=== PATIENT | female | born 1990 | race Caucasian/White ===

== ENCOUNTER 2019-01-24 18:53 | Outpatient (CLI) | payer OTHER | END 2019-01-24 20:57 | disposition home or self-care (01) | LOC: OBT 18:53 → L-D 18:54 → OBT 20:57 | DX: O36.8130 Decreased fetal movements, third trimester, not applicable or unspecified (principal); Z3A.38 38 weeks gestation of pregnancy | CPT/HCPCS: 36415; 76815; 76818 ==

== ENCOUNTER 2019-02-02 11:39 | Inpatient (IN) | payer OTHER ==
[2019-02-02] MEDS ORDERED: BUTORPHANOL 2 MG INJ IV (15:00)
[2019-02-02] MEDS ORDERED: OXYTOCIN 30 UNITS/LR 500 ML IV ×2 (15:00)
[2019-02-02] MEDS ORDERED: METHYLERGONOVINE 0.2 MG INJ IM (15:00)
[2019-02-02] MEDS ORDERED: LIDOCAINE 1% (MPF) 30 ML INJ INJ (15:00)
[2019-02-02] MEDS ORDERED: IBUPROFEN 600 MG TAB PO (15:00)
[2019-02-02] MEDS ORDERED: MISOPROSTOL 200 MCG TAB PR (15:00)
[2019-02-02 15:18] LABS: ADD MAN DIFF? NO
[2019-02-02 15:23] LABS: WHITE BLOOD COUNT 9.3 10^3/ul (4.8-10.8)
[2019-02-02 15:23] LABS: BASOPHILS % 0.3 % (0.0-2.0); EOSINOPHILS # 0.1 10^3/ul (0.0-0.5); EOSINOPHILS % 0.9 % (0.0-7.0); HEMATOCRIT 33.2 % (37.0-47.0); HEMOGLOBIN 10.6 g/dl (12.0-16.0); LYMPHOCYTES # 1.8 10^3/ul (0.8-2.9); LYMPHOCYTES % 19.5 % (15.0-51.0); MEAN CORPUSCULAR HEMOGLOBIN 26.5 pg (29.0-33.0); MEAN CORPUSCULAR HGB CONC 31.9 g/dl (32.0-37.0); MEAN PLATELET VOLUME 10.8 fl (7.4-10.4); MONOCYTE # 0.6 10^3/ul (0.3-0.9); NEUTROPHIL # 6.8 10^3/ul (1.6-7.5); NEUTROPHILS % 72.8 % (39.0-77.0); PLATELET COUNT 267 10^3/UL (140-415); RED CELL DISTRIBUTION WIDTH 13.5 % (11.5-14.5)
[2019-02-02] MEDS: LACTATED RINGER'S 1,000 ML IV ×3 (15:48→23:41)
[2019-02-02] MEDS: MISOPROSTOL 50 MCG CAPSULE PO ×3 (15:48→23:00)
[2019-02-02 15:53] LABS: INR 0.97
[2019-02-02 15:54] LABS: PARTIAL THROMBOPLASTIN TIME 30.9 Sec (23.0-35.0)
[2019-02-02 16:12] LABS: HEPATITIS B SURFACE ANTIGEN NEGATIVE (NEGATIVE)
[2019-02-03 02:37] LABS: AMPHETAMINE/METHAMPHETAMINE Negative (NEGATIVE); BARBITURATES Negative (NEGATIVE); BENZODIAZEPINES Negative (NEGATIVE); CANNABINOIDS Positive (NEGATIVE); COCAINE Negative (NEGATIVE); OPIATES Negative (NEGATIVE)
[2019-02-03] MEDS: MISOPROSTOL 50 MCG CAPSULE PO ×5 (03:00→20:46)
[2019-02-03] MEDS: LACTATED RINGER'S 1,000 ML IV ×3 (07:26→23:19)
[2019-02-03 22:18] LABS: RAPID PLASMA REAGIN NONREACTIVE (NR)
[2019-02-04] MEDS ORDERED: MINERAL OIL LIGHT 10 ML VIAL TOP
[2019-02-04] MEDS: OXYTOCIN 30 UNITS/LR 500 ML IV ×2 (00:57→20:30)
[2019-02-04] MEDS: LACTATED RINGER'S 1,000 ML IV ×4 (07:50→19:06)
[2019-02-04] MEDS ORDERED: FENTAnyl 2MCG/ML-ROPIV 0.2% 100 ML (15:09)
[2019-02-04] MEDS ORDERED: NALOXONE (0.4 MG/ML) INJ IV (17:30)
[2019-02-04] MEDS ORDERED: FENTAnyl 2MCG/ML-ROPIV 0.2% 100 ML BAG EPI (17:30)
[2019-02-04] MEDS ORDERED: ONDANSETRON 4 MG INJ IV (17:30)
[2019-02-04] MEDS ORDERED: DIPHENHYDRAMINE 50 MG INJ IV (17:30)
[2019-02-04] MEDS: ACETAMINOPHEN 500 MG TAB PO (20:22)
[2019-02-04] MEDS: KETOROLAC 30 MG INJ IV (20:22)
[2019-02-04] MEDS: MINERAL OIL LIGHT 10 ML VIAL TOP (20:30)
[2019-02-04] MEDS: CARBOPROST 250 MCG INJ IM (20:30)
[2019-02-04] MEDS: LACTATED RINGER'S 1,000 ML IV* (21:48)
[2019-02-04] MEDS ORDERED: OXYTOCIN 30 UNITS/LR 500 ML IV (22:00)
[2019-02-04] MEDS ORDERED: WITCH HAZEL/GLYCERIN PAD PR (22:00)
[2019-02-04] MEDS ORDERED: ZOLPIDEM 5 MG TAB PO (22:00)
[2019-02-04] MEDS ORDERED: BENZOCAINE 20% 56 ML SPRAY TOP (22:00)
[2019-02-04] MEDS ORDERED: DIBUCAINE 1% 30 GM OINT TOP (22:00)
[2019-02-04] MEDS ORDERED: CARBOPROST 250 MCG INJ IM (22:00)
[2019-02-04] MEDS ORDERED: MISOPROSTOL 200 MCG TAB PR (22:00)
[2019-02-04] MEDS ORDERED: HYDROCODONE/APAP (5/325) TAB PO ×2 (22:00)
[2019-02-04] MEDS ORDERED: METHYLERGONOVINE 0.2 MG INJ IM (22:00)
[2019-02-04] MEDS: IBUPROFEN 600 MG TAB PO (23:33)
[2019-02-04] MEDS: CEPHALEXIN 500 MG CAP PO (23:33)
[2019-02-05] MEDS: CEPHALEXIN 500 MG CAP PO ×4 (05:43→23:32)
[2019-02-05] MEDS: IBUPROFEN 600 MG TAB PO ×4 (05:44→23:32)
[2019-02-05] MEDS: LACTATED RINGER'S 1,000 ML IV* (05:48)
[2019-02-05 08:21] LABS: ADD MAN DIFF? NO
[2019-02-05 08:28] LABS: WHITE BLOOD COUNT 10.7 10^3/ul (4.8-10.8)
[2019-02-05 08:28] LABS: BASOPHILS % 0.3 % (0.0-2.0); EOSINOPHILS # 0.1 10^3/ul (0.0-0.5); EOSINOPHILS % 0.5 % (0.0-7.0); HEMATOCRIT 29.6 % (37.0-47.0); HEMOGLOBIN 9.4 g/dl (12.0-16.0); LYMPHOCYTES % 18.4 % (15.0-51.0); MEAN CORPUSCULAR HEMOGLOBIN 26.3 pg (29.0-33.0); MEAN CORPUSCULAR HGB CONC 31.8 g/dl (32.0-37.0); MEAN CORPUSCULAR VOLUME 82.7 fl (82.0-101.0); MEAN PLATELET VOLUME 11.2 fl (7.4-10.4); MONOCYTE # 0.7 10^3/ul (0.3-0.9); MONOCYTES % 6.8 % (0.0-11.0); NEUTROPHIL # 7.8 10^3/ul (1.6-7.5); NEUTROPHILS % 73.3 % (39.0-77.0); PLATELET COUNT 228 10^3/UL (140-415); RED BLOOD COUNT 3.58 10^6/ul (4.20-5.40); RED CELL DISTRIBUTION WIDTH 13.6 % (11.5-14.5)
[2019-02-05] MEDS: SENNA/DOCUSATE NA (8.6MG/50MG) TAB PO ×2 (09:30→20:53)
[2019-02-05] MEDS: MAGNESIUM HYDROXIDE 30ML CUP PO ×2 (09:30→20:53)
[2019-02-06] MEDS: LANOLIN HPA 1 PKT TOP (00:38)
[2019-02-06] MEDS: IBUPROFEN 600 MG TAB PO (05:24)
[2019-02-06] MEDS: CEPHALEXIN 500 MG CAP PO (05:24)
[2019-02-06] MEDS ORDERED: DIPHTH/TET/ACEL PERTUSS (ADULT) 0.5 ML VIAL IM* (09:00)
[2019-02-06] MEDS ORDERED: VARICELLA VACCINE LIVE/PF 1,350 UNIT/0.5 ML ML SC* (09:00)
[2019-02-06] MEDS: SENNA/DOCUSATE NA (8.6MG/50MG) TAB PO (09:34)
[2019-02-06] MEDS: MAGNESIUM HYDROXIDE 30ML CUP PO (09:34)
[2019-02-06] MEDS: MEASLES,MUMPS,RUBELLA VACCINE INJ SC* (09:35)
== END 2019-02-06 11:20 | disposition home or self-care (01) | DRG 807 ==
LOC: OBT 11:39 → PP1 02-04 21:36 → L-D 11:40 → OBT 14:10 → L-D 14:10
PROVIDERS: Obstetrics & Gynecology
PROC: 3E033VJ Introduction of Other Hormone into Peripheral Vein, Percutaneous Approach (ICD-10-PCS; 2019-02-02)
PROC: 10E0XZZ Delivery of Products of Conception, External Approach (ICD-10-PCS; principal; 2019-02-04)
DX: O80 Encounter for full-term uncomplicated delivery (principal); Z37.0 Single live birth; Z3A.40 40 weeks gestation of pregnancy
CPT/HCPCS: 62322; 76815; 76818; 80307; 85025; 85610; 85730; 86592; 86850; 86900; 86901; 87340